=== PATIENT | female | born 2000 | race Caucasian/White ===

== ENCOUNTER 2023-03-06 00:20 | Emergency (ER) | payer SELFPAY ==
[~2023-03-06] VITALS: Ht 172.7 cm; Wt 80.0 kg
[2023-03-06 00:25] VITALS: BP 121/76; PULSE 129; RESP 16; TEMP 99.1; O2SAT 98
[2023-03-06] MEDS ORDERED: ACETAMINOPHEN 325MG TABLET PO ONE (00:45)
[2023-03-06] MEDS ORDERED: TOPUD PO (01:16)
[2023-03-06] MEDS ORDERED: T3 PO (05:57)
[2023-03-06] MEDS ORDERED: IBUP-2029 MT (05:57)
[2023-03-06] MEDS ORDERED: AMOX1TAB16 MT (05:57)
== END 2023-03-06 06:20 | disposition home or self-care (01) ==
LOC: ER 00:27
DX: S92.422A Displaced fracture of distal phalanx of left great toe, initial encounter for closed fracture (principal); S00.83XA Contusion of other part of head, initial encounter; Y08.89XA Assault by other specified means, initial encounter; Y93.89 Activity, other specified; Y92.89 Other specified places as the place of occurrence of the external cause; Y99.8 Other external cause status
CPT/HCPCS: 73630; 70486; 29515; 99284; Z7610 ×4